=== PATIENT | male | born 1980 | race Caucasian/White ===

== ENCOUNTER 2024-02-05 17:23 | Inpatient (IN) ==
[2024-02-05 18:55] LABS: BILIRUBIN,URINE NEGATIVE (NEGATIVE); BLOOD/HEMOGLOBIN,URINE 1+ (NEGATIVE); GLUCOSE, URINE 2+ (NEGATIVE); KETONES,URINE NEGATIVE (NEGATIVE); LEUKOCYTE ESTERASE ,URINE 1+ (NEGATIVE); NITRITES,URINE NEGATIVE (NEGATIVE); PROTEIN,URINE 1+ (NEGATIVE); UROBILINOGEN,URINE 2+ (NORMAL)
[2024-02-05 19:01] LABS: APPEARANCE,URINE CLEAR (CLEAR); COLOR,URINE YELLOW (YELLOW)
[2024-02-05 19:02] LABS: BACTERIA,URINE NEGATIVE /HPF (NEGATIVE); RBC,URINE 0-2 /HPF (0-3); SQUAMOUS EPITHELIAL CELL,UR RARE /HPF (NEGATIVE)
--- NOTE | 2024-02-05 19:02 | DR.ABDMALE ---
HPI Time seen Time Seen by Provider: 02/05/24 19:02 PCP Primary Care Physician: tonja larry Complaint Chief Complaint:: Patient states around 1400 he was standing around at work he started having gas shooting pain from his kannan shoulders radiating down to his abd area states he went to medical they gave him a antiacid it eased it off a little. Patient states he went home around 1530 tried to lay down the pain started back up again and worse making it tender under kannan rib cages so he went to see his pcp they gave him a gi cocktail which didnt help any. Self Treatment fo Chief Complaint: antiacid, gi cocktail COVID-19 Coronavirus risk:travel/contact w/high risk person: No Has patient experienced Coronavirus symptoms: No Reviewed Nurses Notes Review: Yes Mode of arrival Mode of Arrival: Ambulatory Timing Onset of Chief Complaint: 02/05/24 PMH PMH Past Medical History: Yes Past Medical History: Diabetes and Hypertension Past Surgical History: Yes Past Surgical History Comment: adnoids Family History History of Family Medical Conditions: Yes Family Medical History: Diabetes Mellitus Social History Does patient currently use any type of tobacco product: No Have you used tobacco products in the last 12 months: No Type of Tobacco Use: None Does any household member use tobacco: No Alcohol Use: None Do you use any recreational Drugs:: No Lives With: Family Lives Where: Home Travel Risk Coronavirus risk:travel/contact w/high risk person: No Has patient experienced Coronavirus symptoms: No Infectious screening In the last 2 months have you had wt loss of >10#?: NO Have you had fever, night sweats or hemotysis?: No Have you traveled outside the country in the last 6 months?: No Isolation: Standard PE Vital Signs Vital Signs: Temp Pulse Resp BP Pulse Ox O2 Del Method 02/05/24 19:27 18 02/05/24 17:32 98.1 F 85 18 133/85 98 Room Air ROR Labs Reviewed 02/08/24 04:03 02/08/24 04:03 Laboratory: WBC 5.8 X10^3/uL (3.6-10.0) 02/06/24 04:10 RBC 4.60 X10^6/uL (4.7-6.0) L 02/06/24 04:10 Hgb 13.3 g/dL (13.5-18.0) L 02/06/24 04:10 Hct 38.9 % (42.0-54.0) L 02/06/24 04:10 MCV 84.7 fL (80.0-100.0) 02/06/24 04:10 MCH 28.9 pg (27.0-34.0) 02/06/24 04:10 MCHC 34.1 g/dL (33.0-35.0) 02/06/24 04:10 RDW 15.4 % (11.6-16.5) 02/06/24 04:10 Plt Count 166 X10^3/uL (150.0-450.0) 02/06/24 04:10 MPV 10.3 fL (7.4-11.0) 02/06/24 04:10 Neut % (Auto) 60.3 % (42.0-75.0) 02/06/24 04:10 Lymph % (Auto) 28.8 % (21.0-51.0) 02/06/24 04:10 [place] % (Auto) 8.6 % (0.0-13.0) 02/06/24 04:10 Eos % (Auto) 1.9 % (0.9-2.9) 02/06/24 04:10 Baso % (Auto) 0.4 % (0.2-1.0) 02/06/24 04:10 Neut # (Auto) 3.5 x10^3/uL (2.2-4.8) 02/06/24 04:10 Lymph # (Auto) 1.7 X10^3/uL (1.3-2.9) 02/06/24 04:10 [place] # (Auto) 0.5 x10^3/uL (0.3-0.8) 02/06/24 04:10 Eos # (Auto) 0.1 x10^3/uL (0.0-0.2) 02/06/24 04:10 Baso # (Auto) 0.0 X10^3/uL (0.0-0.1) 02/06/24 04:10 Absolute Nucleated RBC 0.1 /100WBC 02/06/24 04:10 D-Dimer 0.28 ug/ml (0.0-0.57) 02/05/24 18:51 Sodium 140 mmol/L (136-145) 02/06/24 04:10 Corrected Sodium TNP 02/06/24 04:10 Potassium 3.8 mmol/L (3.5-5.1) 02/06/24 04:10 Chloride 103 mmol/L (98-107) 02/06/24 04:10 Carbon Dioxide 33.4 mmol/L (21-32) H 02/06/24 04:10 BUN 6 mg/dL (7-18) L 02/06/24 04:10 Creatinine 0.91 mg/dL (0.70-1.30) 02/06/24 04:10 Est GFR (MDRD) Af Amer > 60 (>60) 02/06/24 04:10 Est GFR (MDRD) Non-Af > 60 (>60) 02/06/24 04:10 Glucose 108 mg/dL (65-99) H 02/06/24 04:10 POC Glucose (mg/dL) 106 mg/dL (65-99) H 02/06/24 05:23 Calcium 8.6 mg/dL (8.5-10.1) 02/06/24 04:10 Corrected Calcium 9.2 mg/dL (8.5-10.1) 02/06/24 04:10 Total Bilirubin 3.70 mg/dL (0.2-1.0) H 02/06/24 04:10 AST 641 Units/L (15-37) H 02/06/24 04:10 ALT 487 Units/L (12-78) H 02/06/24 04:10 Alkaline Phosphatase 165 Units/L (46-116) H 02/06/24 04:10 Creatine Kinase 56 Units/L (39-308) 02/05/24 18:51 Troponin I High Sens < 4.0 ng/L (4.0-60.0) L 02/05/24 18:51 B-Natriuretic Peptide 15.6 pg/mL (0-79) 02/05/24 18:51 Total Protein 6.4 g/dL (6.4-8.2) 02/06/24 04:10 Albumin 3.3 g/dL (3.4-5.0) L 02/06/24 04:10 Globulin 3.1 g/dL (2.5-4.5) 02/06/24 04:10 Albumin/Globulin Ratio 1.1 Ratio (1.1-2.1) 02/06/24 04:10 Amylase 43 Units/L (25-115) 02/06/24 04:10 Lipase 63 Units/L (16-77) 02/06/24 04:10 Specimen Type Clean catch urine 02/05/24 18:40 Urine Color Yellow (YELLOW) 02/05/24 18:40 Urine Appearance Clear (CLEAR) 02/05/24 18:40 Urine pH 6.0 (5.0 - 8.0) 02/05/24 18:40 Ur Specific [place] 1.020 (1.000-1.030) 02/05/24 18:40 Urine Protein 1+ (NEGATIVE) 02/05/24 18:40 Urine Glucose (UA) 2+ (NEGATIVE) 02/05/24 18:40 Urine Ketones Negative (NEGATIVE) 02/05/24 18:40 Urine Blood 1+ (NEGATIVE) 02/05/24 18:40 Urine Nitrite Negative (NEGATIVE) 02/05/24 18:40 Urine Bilirubin Negative (NEGATIVE) 02/05/24 18:40 Urine Urobilinogen 2+ (NORMAL) 02/05/24 18:40 Ur Leukocyte Esterase 1+ (NEGATIVE) 02/05/24 18:40 Urine RBC 0-2 /HPF (0-3) 02/05/24 18:40 Urine WBC 0-2 /HPF (0-5) 02/05/24 18:40 Ur Squamous Epith Cells Rare /HPF (NEGATIVE) 02/05/24 18:40 Urine Bacteria Negative /HPF (NEGATIVE) 02/05/24 18:40 Urine Mucus Few /HPF (NEGATIVE) 02/05/24 18:40 Ur Culture Indicated? No/not indicated 02/05/24 18:40 SARS-CoV-2 (PCR) Negative (NEGATIVE) 02/05/24 23:14 Opioid Opioid Risk Tool Age (Andrés box if 16-45): Yes History of Preadolescent Sexual Abuse: No Total: 1 Total Score Risk Category: Low Risk Copyright: Sebastian MORGAN predicting aberrant behaviors Discharge Plan Diagnosis Discharge Problem: Hyperbilirubinemia Discharge Plan Patient Disposition: 09 ADMITTED INPATIENT Condition: Stable
[2024-02-05 19:05] LABS: BASOPHILS % (AUTO) 0.5 % (0.2-1.0); EOSINOPHILS # (AUTO) 0.1 x10^3/uL (0.0-0.2); HEMATOCRIT 40.3 % (42.0-54.0); HEMOGLOBIN 13.9 g/dL (13.5-18.0); LYMPHOCYTES % (AUTO) 20.3 % (21.0-51.0); MEAN CORPUSCULAR HEMOGLOBIN 29.3 pg (27.0-34.0); MEAN CORPUSCULAR HGB CONC 34.5 g/dL (33.0-35.0); MEAN CORPUSCULAR VOLUME 84.7 fL (80.0-100.0); MEAN PLATELET VOLUME 10.1 fL (7.4-11.0); MONOCYTES # (AUTO) 0.8 x10^3/uL (0.3-0.8); MONOCYTES % (AUTO) 7.6 % (0.0-13.0); NEUTROPHILS % (AUTO) 70.6 % (42.0-75.0); PLATELET COUNT 204 X10^3/uL (150.0-450.0); RED BLOOD COUNT 4.76 X10^6/uL (4.7-6.0); RED CELL DISTRIBUTION WIDTH 14.8 % (11.6-16.5)
--- NOTE | 2024-02-05 19:14 | EKG ---
Test Reason : chest pain Blood Pressure : */* mmHG Vent. Rate : 78 BPM Atrial Rate : 78 BPM P-R Int : 148 ms QRS Dur : 88 ms QT Int : 360 ms P-R-T Axes : 56 17 42 degrees QTc Int : 410 ms Normal sinus rhythm Normal ECG No previous ECGs available Confirmed by Deon Villavicencio MD ([id number]) on 02/06/2024 7:01:22 AM Referred By: Confirmed By: Deon Villavicencio MD
[2024-02-05 19:20] LABS: ALANINE AMINOTRANSFERASE 159 Units/L (12-78); ALKALINE PHOSPHATASE 161 Units/L (46-116); ASPARTATE AMINO TRANSFERASE 197 Units/L (15-37); BLOOD UREA NITROGEN 9 mg/dL (7-18); CALCIUM 9.7 mg/dL (8.5-10.1); CHLORIDE 100 mmol/L (98-107); COR NA(FOR HYPERGLY) 140 mmol/L (136-145); CREATINE KINASE 56 Units/L (39-308); CREATININE 1.09 mg/dL (0.70-1.30); GLUCOSE 176 mg/dL (65-99); POTASSIUM 3.8 mmol/L (3.5-5.1); SODIUM 138 mmol/L (136-145); TOTAL PROTEIN 7.6 g/dL (6.4-8.2); eGFR NON BLACK RACES > 60 (>60)
[2024-02-05] MEDS: NS 1,000 ML IV 1,000 ML IV ONE ×2 (19:26→21:26)
[2024-02-05] MEDS: ZOFRAN INJ 4 MG VIAL IVP ONE (19:26)
[2024-02-05] MEDS: DEMEROL INJ IVP ONE (19:27)
--- NOTE | 2024-02-05 20:55 | CT ---
EXAM: ABDOMEN/PELVIS W/O CON HISTORY: Patient states around 1400 he was standing around at work he started having gas shooting pain from hi s kannan shoulders radiating down to his abd area ; COMPARISON: None. TECHNIQUE: Non-contrasted axial CT images of the abdomen and pelvis were obtained and reformatted into coronal a nd sagittal planes for further evaluation. Radiation dose: 732.05 mGy-cm total DLP FINDINGS: Lung bases are clear. Stomach appears normal. Diffuse fatty infiltration of the liver. Spleen, pancreas and adrenal glands are unremarkable. Gallbladder appears normal. No intra or extrahepatic biliary dilatation. Bilateral nonobstructing nephroliths. Otherwise, unremarkable appearance of the kidneys. No hydronephrosis, hydroureter or ureteral calculus. Unremarkable appearance of the urinary bladder. Colonic diverticulosis without diverticulitis. Otherwise, unremarkable appearance of the small and large bowel. Reproductive structures are unremarkable. No evidence of acute appendicitis. No pneumoperitoneum. No significant fluid collection. No adenopathy. No acute osseous abnormality. Small fat containing umbilical hernia without inflammatory changes. IMPRESSION: 1. No acute intra-abdominal abnormality detected. 2. Nonobstructing bilateral nephroliths. 3. Diffuse fatty infiltration of the liver. 4. Colonic diverticulosis without diverticulitis. THIS IS AN ELECTRONICALLY VERIFIED FINAL REPORT 02/05/2024 8:51 PM - Electronically signed by Shaheed Diaz MD
[2024-02-06 00:41] VITALS: BMI 41.6
--- NOTE | 2024-02-06 03:57 | RAD ---
PROCEDURE: Chest X-ray 1 View.HISTORY: chest pain; .TECHNIQUE: AP portable view.COMPARISON: None .TECHNICAL QUALITY: Satisfactory.FINDINGS:Normal size heart.Mediastinum and hilar regions show no masses or lymphadenopathy.Normal central vascularity.No pulmonary consolidation, masses, pleural fluid, or pneumothorax.No acute bony abnormality.IMPRESSION:No evidence of active cardiopulmonary disease.THIS IS AN ELECTRONICALLY VERIFIED FINAL REPORT02/06/2024 3:54 AM - Electronically signed by Lee Chan MD
[2024-02-06 05:08] LABS: BASOPHILS % (AUTO) 0.4 % (0.2-1.0); EOSINOPHILS # (AUTO) 0.1 x10^3/uL (0.0-0.2); EOSINOPHILS % (AUTO) 1.9 % (0.9-2.9); HEMATOCRIT 38.9 % (42.0-54.0); HEMOGLOBIN 13.3 g/dL (13.5-18.0); LYMPHOCYTES # (AUTO) 1.7 X10^3/uL (1.3-2.9); LYMPHOCYTES % (AUTO) 28.8 % (21.0-51.0); MEAN CORPUSCULAR HEMOGLOBIN 28.9 pg (27.0-34.0); MEAN CORPUSCULAR HGB CONC 34.1 g/dL (33.0-35.0); MEAN CORPUSCULAR VOLUME 84.7 fL (80.0-100.0); MEAN PLATELET VOLUME 10.3 fL (7.4-11.0); MONOCYTES # (AUTO) 0.5 x10^3/uL (0.3-0.8); MONOCYTES % (AUTO) 8.6 % (0.0-13.0); NEUTROPHILS # (AUTO) 3.5 x10^3/uL (2.2-4.8); NEUTROPHILS % (AUTO) 60.3 % (42.0-75.0); PLATELET COUNT 166 X10^3/uL (150.0-450.0); RED CELL DISTRIBUTION WIDTH 15.4 % (11.6-16.5); WHITE BLOOD COUNT 5.8 X10^3/uL (3.6-10.0)
[2024-02-06 05:15] LABS: ALANINE AMINOTRANSFERASE 487 Units/L (12-78); ALBUMIN 3.3 g/dL (3.4-5.0); ALKALINE PHOSPHATASE 165 Units/L (46-116); AMYLASE 43 Units/L (25-115); BLOOD UREA NITROGEN 6 mg/dL (7-18); CALCIUM 8.6 mg/dL (8.5-10.1); CARBON DIOXIDE 33.4 mmol/L (21-32); CHLORIDE 103 mmol/L (98-107); COR CA(FOR HYPOALB) 9.2 mg/dL (8.5-10.1); CREATININE 0.91 mg/dL (0.70-1.30); GLUCOSE 108 mg/dL (65-99); POTASSIUM 3.8 mmol/L (3.5-5.1); SODIUM 140 mmol/L (136-145); TOTAL PROTEIN 6.4 g/dL (6.4-8.2); eGFR NON BLACK RACES > 60 (>60)
[2024-02-06 05:30] LABS: ASPARTATE AMINO TRANSFERASE 641 Units/L (15-37)
[2024-02-06] MEDS ORDERED: CONSULT PHARMACY - POTASSIUM & MAGNESIUM XX SCH (06:00)
--- NOTE | 2024-02-06 09:57 | DR.H&P ---
H&P History & Physical for Day of: H&P Date: 02/06/24 Chief Complaint Chief Complaint: abdominal pain, nausea, vomiting History of Present Illness History of Present Illness: Mr Landaverde is a 44y/o male with a PMH of HTN, DM and Obesity presented with worsening abdominal pain, nausea and vomiting that started yesterday while he was at work. He also had pain radiating to his shoulders. He was seen in the medical office at work, normal EKG and given antacids. He states his symptoms improved slightly but later he started having vomiting so went to his PCP. He states abdominal pain was worsening so he came to the ER. Work up showed elevated LFTs and Alk phos. CTAP showed fatty liver, diverticulosis but no acute changes. Patient was started on anti-emetics, fluids and pain control. Surgery has also been consulted. GB US is pending. He does feel better now, pain has eased a little bit. Denies diarrhea, fever or chills. labs/imaging reviewed: -WBC 5.8 Hgb 13.3 BUN/Cr 6/0.91 AST/ALT 641/487 AP 165 Lipase 63 -CTAP reviewed Plan: start hydration with normal saline, anti-emetics and pain control. Follow surgery recommendations. Gallbladder US pending. NPO for now. Replace electrolytes as per protocol. Home meds on hold for now. Serial abdominal exams. Monitor AM labs/imaging. Past Medical History Past Medical History: Diabetes and Hypertension Family History Family Medical History: Diabetes Mellitus, Cancer and Heart Failure Social History Does patient currently use any type of tobacco product: No Have you used tobacco products in the last 12 months: No Type of Tobacco Use: None Does any household member use tobacco: No Alcohol Use: None Drug Use: None Medications Home Medications: Home Medications Medication Instructions Recorded Confirmed Type buspirone 10 mg tablet 10 mg PO DAILY 02/05/24 02/05/24 History escitalopram oxalate 20 mg tablet 20 mg PO QDAY 02/05/24 02/05/24 History lisinopril 10 mg tablet 10 mg PO QDAY 02/05/24 02/05/24 History meloxicam 15 mg tablet 15 mg PO QDAY 02/05/24 02/05/24 History semaglutide 2 mg/dose (8 mg/3 mL) 2 mg subcut WEEKLY 02/05/24 02/05/24 History subcutaneous pen injector (Ozempic) Allergies Allergies Allergy/AdvReac Type Severity Reaction Status Date / Time No Known Allergies Allergy Verified 02/05/24 17:38 Labs 02/06/24 04:10 02/06/24 04:10 Labs: Laboratory WBC 5.8 X10^3/uL (3.6-10.0) 02/06/24 04:10 RBC 4.60 X10^6/uL (4.7-6.0) L 02/06/24 04:10 Hgb 13.3 g/dL (13.5-18.0) L 02/06/24 04:10 Hct 38.9 % (42.0-54.0) L 02/06/24 04:10 MCV 84.7 fL (80.0-100.0) 02/06/24 04:10 MCH 28.9 pg (27.0-34.0) 02/06/24 04:10 MCHC 34.1 g/dL (33.0-35.0) 02/06/24 04:10 RDW 15.4 % (11.6-16.5) 02/06/24 04:10 Plt Count 166 X10^3/uL (150.0-450.0) 02/06/24 04:10 MPV 10.3 fL (7.4-11.0) 02/06/24 04:10 Neut % (Auto) 60.3 % (42.0-75.0) 02/06/24 04:10 Lymph % (Auto) 28.8 % (21.0-51.0) 02/06/24 04:10 [place] % (Auto) 8.6 % (0.0-13.0) 02/06/24 04:10 Eos % (Auto) 1.9 % (0.9-2.9) 02/06/24 04:10 Baso % (Auto) 0.4 % (0.2-1.0) 02/06/24 04:10 Neut # (Auto) 3.5 x10^3/uL (2.2-4.8) 02/06/24 04:10 Lymph # (Auto) 1.7 X10^3/uL (1.3-2.9) 02/06/24 04:10 [place] # (Auto) 0.5 x10^3/uL (0.3-0.8) 02/06/24 04:10 Eos # (Auto) 0.1 x10^3/uL (0.0-0.2) 02/06/24 04:10 Baso # (Auto) 0.0 X10^3/uL (0.0-0.1) 02/06/24 04:10 Absolute Nucleated RBC 0.1 /100WBC 02/06/24 04:10 D-Dimer 0.28 ug/ml (0.0-0.57) 02/05/24 18:51 Sodium 140 mmol/L (136-145) 02/06/24 04:10 Corrected Sodium TNP 02/06/24 04:10 Potassium 3.8 mmol/L (3.5-5.1) 02/06/24 04:10 Chloride 103 mmol/L (98-107) 02/06/24 04:10 Carbon Dioxide 33.4 mmol/L (21-32) H 02/06/24 04:10 BUN 6 mg/dL (7-18) L 02/06/24 04:10 Creatinine 0.91 mg/dL (0.70-1.30) 02/06/24 04:10 Est GFR (MDRD) Af Amer > 60 (>60) 02/06/24 04:10 Est GFR (MDRD) Non-Af > 60 (>60) 02/06/24 04:10 Glucose 108 mg/dL (65-99) H 02/06/24 04:10 POC Glucose (mg/dL) 106 mg/dL (65-99) H 02/06/24 05:23 Calcium 8.6 mg/dL (8.5-10.1) 02/06/24 04:10 Corrected Calcium 9.2 mg/dL (8.5-10.1) 02/06/24 04:10 Total Bilirubin 3.70 mg/dL (0.2-1.0) H 02/06/24 04:10 AST 641 Units/L (15-37) H 02/06/24 04:10 ALT 487 Units/L (12-78) H 02/06/24 04:10 Alkaline Phosphatase 165 Units/L (46-116) H 02/06/24 04:10 Creatine Kinase 56 Units/L (39-308) 02/05/24 18:51 Troponin I High Sens < 4.0 ng/L (4.0-60.0) L 02/05/24 18:51 B-Natriuretic Peptide 15.6 pg/mL (0-79) 02/05/24 18:51 Total Protein 6.4 g/dL (6.4-8.2) 02/06/24 04:10 Albumin 3.3 g/dL (3.4-5.0) L 02/06/24 04:10 Globulin 3.1 g/dL (2.5-4.5) 02/06/24 04:10 Albumin/Globulin Ratio 1.1 Ratio (1.1-2.1) 02/06/24 04:10 Amylase 43 Units/L (25-115) 02/06/24 04:10 Lipase 63 Units/L (16-77) 02/06/24 04:10 Specimen Type Clean catch urine 02/05/24 18:40 Urine Color Yellow (YELLOW) 02/05/24 18:40 Urine Appearance Clear (CLEAR) 02/05/24 18:40 Urine pH 6.0 (5.0 - 8.0) 02/05/24 18:40 Ur Specific [place] 1.020 (1.000-1.030) 02/05/24 18:40 Urine Protein 1+ (NEGATIVE) 02/05/24 18:40 Urine Glucose (UA) 2+ (NEGATIVE) 02/05/24 18:40 Urine Ketones Negative (NEGATIVE) 02/05/24 18:40 Urine Blood 1+ (NEGATIVE) 02/05/24 18:40 Urine Nitrite Negative (NEGATIVE) 02/05/24 18:40 Urine Bilirubin Negative (NEGATIVE) 02/05/24 18:40 Urine Urobilinogen 2+ (NORMAL) 02/05/24 18:40 Ur Leukocyte Esterase 1+ (NEGATIVE) 02/05/24 18:40 Urine RBC 0-2 /HPF (0-3) 02/05/24 18:40 Urine WBC 0-2 /HPF (0-5) 02/05/24 18:40 Ur Squamous Epith Cells Rare /HPF (NEGATIVE) 02/05/24 18:40 Urine Bacteria Negative /HPF (NEGATIVE) 02/05/24 18:40 Urine Mucus Few /HPF (NEGATIVE) 02/05/24 18:40 Ur Culture Indicated? No/not indicated 02/05/24 18:40 SARS-CoV-2 (PCR) Negative (NEGATIVE) 02/05/24 23:14 Review of Systems Constitutional: No Symptoms Reported Eyes: No Symptoms Reported Respiratory: No Symptoms Reported Cardiovascular: No Symptoms Reported Gastrointestinal: Nausea, Vomiting and Abdominal Pain Genitourinary: No Symptoms Reported Musculoskeletal: Other (shoulder pain ) Skin: No Symptoms Reported Neurological: No Symptoms Reported Physical Exam Vital Signs: Vital Signs Temperature 97.9 F Temperature 97.6 F Pulse Rate [Left Brachial] 79 Pulse Rate [Left Brachial] 74 Pulse Rate [Left Brachial] 72 Pulse Rate [Left Brachial] 74 Respiratory Rate 22 Respiratory Rate 18 Respiratory Rate 14 Respiratory Rate 30 Blood Pressure [Left Arm] 144/85 Blood Pressure [Left Arm] 144/86 Blood Pressure [Left Arm] 142/81 Blood Pressure [Left Arm] 143/76 O2 Sat by Pulse Oximetry 99 O2 Sat by Pulse Oximetry 98 O2 Sat by Pulse Oximetry 99 O2 Sat by Pulse Oximetry 98 Oriented: Normal Eyes: Normal Ear: Normal Nose: Normal Respiratory: Clear Throughout Cardiovascular: Normal Auscultation: Bowel Sounds: Normal Tenderness: Periumbilical and Mild Skin: Normal Musculoskeletal: Normal Psychiatric: Normal Mood Description: Calm Affect: Normal Speech Pattern: Clear and Appropriate Assessment/Plan (1) Transaminitis: Status: Acute (2) Abdominal pain: Qualifiers: Abdominal location: periumbilical Qualified Code(s): R10.33 - Periumbilical pain Status: Acute (3) Nausea and vomiting: Qualifiers: Vomiting type: unspecified Qualified Code(s): R11.2 - Nausea with vomiting, unspecified Status: Acute (4) Fatty liver: Status: Acute (5) Diverticulosis: Status: Acute (6) HTN (hypertension): Qualifiers: Hypertension type: primary hypertension Qualified Code(s): I10 - Esse ntial (primary) hypertension Status: Acute (7) Type 2 diabetes mellitus: Qualifiers: Diabetes mellitus complication status: with hyperglycemia Diabetes [facility] insulin use: without buttermilk drier operator use Qualified Code(s): E11.65 - Type 2 diabetes mellitus with hyperglycemia Status: Acute Review H&P Reviewed: Yes Patient was examined?: Yes
[2024-02-06] MEDS: NS 1,000 ML IV 1,000 ML IV SCH (09:59)
[2024-02-06] MEDS: K-DUR TAB 20 MEQ PO SCH (10:08)
[2024-02-06] MEDS: ZOFRAN INJ 4 MG VIAL IVP PRN (10:13)
--- NOTE | 2024-02-06 12:57 | US ---
EXAMINATION:GALL BLADDERHISTORY:ABD PAIN, ELEVATED BILLIRUBIN AND LFT'S; .COMPARISON STUDY:CT abdomen 02/05/2024TECHNIQUE:Real-time grayscale, color flow, duplex Doppler spectral analysis right upper abdominal quadrantFINDINGS:The liver measures 21.5 cm longitudinal oblique dimension. The liver is diffusely hyperechoic suspicious for fatty infiltration. Liver details are limited. Normal venous waveforms within the main portal vein. The right hepatic vein is patent on the color flow images.The gallbladder is minimally distended containing multiple gallstones. Gallbladder shah measure 2.8 mm diameter. No pericholecystic fluid. Common bile duct measures 5.3 mm diameter. No intrahepatic bile duct dilatation.Pancreas is not well seen due to patient body habitus. No pancreatic duct dilatation.Limited views of the right kidney show no hydronephrosis.IMPRESSION:Hepatomegaly with probable diffuse fatty infiltration of the liver.Cholelithiasis.THIS IS AN ELECTRONICALLY VERIFIED FINAL REPORT02/06/2024 12:54 PM - Electronically signed by Iliana Suazo MD
[2024-02-06] MEDS: VISTARIL PO PRN (20:52)
[2024-02-06] MEDS: LEVAQUIN PREMIX IV 500 MG 500 MG/100 ML BAG IV SCH (21:21)
--- NOTE | 2024-02-06 22:28 | DR.CONSULT ---
CONSULT Consultation for Day of: Date: 02/06/24 Chief Complaint Chief Complaint: abdominal pain, nausea and vomiting Allergies Allergies Allergy/AdvReac Type Severity Reaction Status Date / Time No Known Allergies Allergy Verified 02/05/24 17:38 History of Present Illness History of Present Illness: This is a 44 year old male with a past history of diabetes and hypertension who presented with 1 Day history of abdominal pain ,nausea and vomiting. He was evaluated in the emergency room and noted to have elevated total billion of 3.5 and elevated Alkaline phosphatase aswell as other liver enzymes . CT of the abdomen was unremarkable. He had ultrasound today showing gallstones. Past Medical History Past Medical History: Diabetes and Hypertension Family History Family Medical History: Diabetes Mellitus, Cancer and Heart Failure Social History Does patient currently use any type of tobacco product: No Have you used tobacco products in the last 12 months: No Type of Tobacco Use: None Does any household member use tobacco: No Alcohol Use: None Drug Use: None Medications Home Medications: No Known Allergies Allergy (Verified 02/05/24 17:38) CONTINUE taking the following medications buspirone 10 mg tablet 10 mg PO DAILY 02/05/24 [History] escitalopram oxalate 20 mg tablet 20 mg PO QDAY 02/05/24 [History] lisinopril 10 mg tablet 10 mg PO QDAY 02/05/24 [History] meloxicam 15 mg tablet 15 mg PO QDAY 02/05/24 [History] semaglutide 2 mg/dose (8 mg/3 mL) subcutaneous pen injector (Ozempic) 2 mg subcut WEEKLY 02/05/24 [History] Review of Systems Constitutional: See HPI Eyes: See HPI (No obvious icterus at this time ) ENT: No Symptoms Reported Respiratory: No Symptoms Reported Cardiovascular: No Symptoms Reported Gastrointestinal: See HPI Genitourinary: No Symptoms Reported Musculoskeletal: No Symptoms Reported Skin: No Symptoms Reported Neurological: No Symptoms Reported Physical Exam Vital Signs: Vital Signs Temperature 99.2 F Temperature 97.7 F Pulse Rate [Left Brachial] 75 Pulse Rate [Left Brachial] 77 Respiratory Rate 19 Respiratory Rate 24 Blood Pressure [Left Arm] 147/82 Blood Pressure [Left Arm] 152/87 O2 Sat by Pulse Oximetry 98 O2 Sat by Pulse Oximetry 97 Oriented: Normal, Time and Place Eyes: Normal and Other (no obvious scleral icterus this time ) Ear: Normal Nose: Normal Throat: Normal Respiratory: Clear Throughout Cardiovascular: Normal : Normal Palpation: Other (mildly tender right upper quadrant ) Tenderness: RUQ Skin: Normal Musculoskeletal: Normal Psychiatric: Normal Mood Description: Calm Affect: Normal Speech Pattern: Clear and Appropriate Plan (1) Transaminitis: Status: Acute Plan: With abdominal pain and this ultrasound and the elevated liver function tests must be concerned about cholecsytis and possible common bile duct stones. This patient will require laparoscopic cholecystectomy and cholangiogram . If cholangiogram shows cholecocholithiasis will require ERCP versus laparoscopic common duct exploration He has requested Dr Dyer be his surgeon. (2) Abdominal pain: Status: Acute Qualifiers: Abdominal location: periumbilical Qualified Code(s): R10.33 - Periumbilical pain Plan: see above (3) Nausea and vomiting: Status: Acute Qualifiers: Vomiting type: unspecified Qualified Code(s): R11.2 - Nausea with vomiting, unspecified Plan: see above (4) Fatty liver: Status: Acute Plan: see above (5) Diverticulosis: Status: Acute Plan: follow (6) HTN (hypertension): Status: Acute Qualifiers: Hypertension type: primary hypertension Qualified Code(s): I10 - Essential (primary) hypertension Plan: home meds (7) Type 2 diabetes mellitus: Status: Acute Qualifiers: Diabetes mellitus half-way insulin use: without half-way use Diabetes mellitus complication status: with hyperglycemia Qualified Code(s): E11.65 - Type 2 diabetes mellitus with hyperglycemia Narrative Support Text: sliding scale insulin
[2024-02-07] MEDS: HIBICLENS WASH EXT ONE (04:13)
[2024-02-07 05:26] LABS: BASOPHILS % (AUTO) 0.6 % (0.2-1.0); EOSINOPHILS # (AUTO) 0.2 x10^3/uL (0.0-0.2); EOSINOPHILS % (AUTO) 4.1 % (0.9-2.9); HEMATOCRIT 41.2 % (42.0-54.0); HEMOGLOBIN 13.9 g/dL (13.5-18.0); LYMPHOCYTES # (AUTO) 1.4 X10^3/uL (1.3-2.9); MEAN CORPUSCULAR HEMOGLOBIN 28.6 pg (27.0-34.0); MEAN CORPUSCULAR HGB CONC 33.7 g/dL (33.0-35.0); MEAN PLATELET VOLUME 10.8 fL (7.4-11.0); MONOCYTES # (AUTO) 0.4 x10^3/uL (0.3-0.8); MONOCYTES % (AUTO) 6.5 % (0.0-13.0); NEUTROPHILS # (AUTO) 3.5 x10^3/uL (2.2-4.8); NEUTROPHILS % (AUTO) 62.8 % (42.0-75.0); PLATELET COUNT 179 X10^3/uL (150.0-450.0); RED BLOOD COUNT 4.84 X10^6/uL (4.7-6.0); WHITE BLOOD COUNT 5.6 X10^3/uL (3.6-10.0)
[2024-02-07 05:47] LABS: ALANINE AMINOTRANSFERASE 599 Units/L (12-78); ALBUMIN 3.3 g/dL (3.4-5.0); ALKALINE PHOSPHATASE 249 Units/L (46-116); ASPARTATE AMINO TRANSFERASE 400 Units/L (15-37); BLOOD UREA NITROGEN 2 mg/dL (7-18); CALCIUM 8.7 mg/dL (8.5-10.1); CHLORIDE 102 mmol/L (98-107); COR CA(FOR HYPOALB) 9.3 mg/dL (8.5-10.1); COR NA(FOR HYPERGLY) 138 mmol/L (136-145); CREATININE 0.88 mg/dL (0.70-1.30); GLUCOSE 117 mg/dL (65-99); MAGNESIUM 1.8 mg/dL (2.0-2.9); POTASSIUM 3.8 mmol/L (3.5-5.1); SODIUM 138 mmol/L (136-145); TOTAL PROTEIN 6.8 g/dL (6.4-8.2); eGFR NON BLACK RACES > 60 (>60)
--- NOTE | 2024-02-07 06:30 | EKG ---
Test Reason : mtf Blood Pressure : */* mmHG Vent. Rate : 73 BPM Atrial Rate : 73 BPM P-R Int : 154 ms QRS Dur : 98 ms QT Int : 378 ms P-R-T Axes : 59 13 30 degrees QTc Int : 416 ms Normal sinus rhythm Normal ECG When compared with ECG of 05-FEB-2024 19:02, No significant change was found Confirmed by Deon Villavicencio MD ([id number]) on 02/07/2024 7:34:09 AM Referred By: Confirmed By: Deon Villavicencio MD
--- NOTE | 2024-02-07 06:51 | RAD ---
EXAMINATION: CHEST, 1 VIEW HISTORY: PRE OP-SHAKILA ; DM, HTN SX: ADENOIDS . COMPARISON STUDY: Chest x-ray 02/05/2024 TECHNIQUE: Single portable AP view chest FINDINGS: Lungs are expanded. Mild cardiac silhouette enlargement. Normal pulmonary vascular pattern. CP ang les are sharp. Bones are intact. IMPRESSION: Mild cardiac silhouette enlargement. THIS IS AN ELECTRONICALLY VERIFIED FINAL REPORT 02/07/2024 6:48 AM - Electronically signed by Iliana Suazo MD
[2024-02-07] MEDS ORDERED: CONSULT PHARMACY - POTASSIUM & MAGNESIUM XX SCH (07:00)
[2024-02-07] MEDS ORDERED: K-DUR TAB 20 MEQ PO SCH (09:00)
[2024-02-07] MEDS ORDERED: MAG-OX TAB PO SCH (09:00)
--- NOTE | 2024-02-07 09:40 | PCM.PROG ---
Progress Note Progress Note for Day of Date of Exam: 02/07/24 Subjective Subjective: Patient seen at bedside, no acute events overnight. He is having some mild abdominal pain. GB US did show hepatic steatosis and cholelithiasis. Dr Talbert saw him and ordered MRCP. Patient will also be having lap cholecystectomy today. He is currently NPO. He is getting IV fluids and IV levaquin. Labs/imaging reviewed: -WBC 5.6 Hgb 13.9 K 3.8 AST/ALT 400/599 AP 249 T. Bili 5.20 -GB US reviewed Plan: follow surgery recommendations, MRCP pending. Possible lap cholecystectomy today. Continue IV fluids, antibiotics and pain control. Continue to replace electrolytes as per protocol. Monitor AM labs/imaging. Past Medical Family Social History Allergies: Allergies No Known Allergies Allergy (Verified 02/05/24 17:38) Vital Signs and I&O's Vital Signs: Vital Signs Temperature 98.1 F Temperature 97.9 F Pulse Rate [Left Brachial] 76 Pulse Rate [Left Brachial] 89 Respiratory Rate 16 Respiratory Rate 16 Blood Pressure [Left Arm] 154/74 Blood Pressure [Left Arm] 144/86 O2 Sat by Pulse Oximetry 94 O2 Sat by Pulse Oximetry 94 Intake and Output: Intake & Output 02/04/24 02/05/24 02/06/24 02/07/24 23:59 23:59 23:59 23:59 Intake Total 1999 3222 / 3222 630 / 630 Balance 1999 / 3222 630 / 630 Physical Exam Oriented: Normal, Time and Place Eyes: Normal Ear: Normal Nose: Normal Throat: Normal Cardiovascular: Normal Auscultation: Bowel Sounds: Normal Tenderness: RUQ and Mild Skin: Normal Musculoskeletal: Normal Psychiatric: Normal Mood Description: Calm Affect: Normal Speech Pattern: Clear and Appropriate Laboratory and Diagnostics 02/07/24 04:20 02/07/24 04:20 Labs: Laboratory WBC 5.6 X10^3/uL (3.6-10.0) 02/07/24 04:20 RBC 4.84 X10^6/uL (4.7-6.0) 02/07/24 04:20 Hgb 13.9 g/dL (13.5-18.0) 02/07/24 04:20 Hct 41.2 % (42.0-54.0) L 02/07/24 04:20 MCV 85.0 fL (80.0-100.0) 02/07/24 04:20 MCH 28.6 pg (27.0-34.0) 02/07/24 04:20 MCHC 33.7 g/dL (33.0-35.0) 02/07/24 04:20 RDW 15.0 % (11.6-16.5) 02/07/24 04:20 Plt Count 179 X10^3/uL (150.0-450.0) 02/07/24 04:20 MPV 10.8 fL (7.4-11.0) 02/07/24 04:20 Neut % (Auto) 62.8 % (42.0-75.0) 02/07/24 04:20 Lymph % (Auto) 26.0 % (21.0-51.0) 02/07/24 04:20 [place] % (Auto) 6.5 % (0.0-13.0) 02/07/24 04:20 Eos % (Auto) 4.1 % (0.9-2.9) H 02/07/24 04:20 Baso % (Auto) 0.6 % (0.2-1.0) 02/07/24 04:20 Neut # (Auto) 3.5 x10^3/uL (2.2-4.8) 02/07/24 04:20 Lymph # (Auto) 1.4 X10^3/uL (1.3-2.9) 02/07/24 04:20 [place] # (Auto) 0.4 x10^3/uL (0.3-0.8) 02/07/24 04:20 Eos # (Auto) 0.2 x10^3/uL (0.0-0.2) 02/07/24 04:20 Baso # (Auto) 0.0 X10^3/uL (0.0-0.1) 02/07/24 04:20 Absolute Nucleated RBC 0.1 /100WBC 02/07/24 04:20 D-Dimer 0.28 ug/ml (0.0-0.57) 02/05/24 18:51 Sodium 138 mmol/L (136-145) 02/07/24 04:20 Corrected Sodium 138 mmol/L (136-145) 02/07/24 04:20 Potassium 3.8 mmol/L (3.5-5.1) 02/07/24 04:20 Chloride 102 mmol/L (98-107) 02/07/24 04:20 Carbon Dioxide 30.0 mmol/L (21-32) 02/07/24 04:20 BUN 2 mg/dL (7-18) L 02/07/24 04:20 Creatinine 0.88 mg/dL (0.70-1.30) 02/07/24 04:20 Est GFR (MDRD) Af Amer > 60 (>60) 02/07/24 04:20 Est GFR (MDRD) Non-Af > 60 (>60) 02/07/24 04:20 Glucose 117 mg/dL (65-99) H 02/07/24 04:20 POC Glucose (mg/dL) 135 mg/dL (65-99) H 02/07/24 05:15 Calcium 8.7 mg/dL (8.5-10.1) 02/07/24 04:20 Corrected Calcium 9.3 mg/dL (8.5-10.1) 02/07/24 04:20 Magnesium 1.8 mg/dL (2.0-2.9) L 02/07/24 04:20 Total Bilirubin 5.20 mg/dL (0.2-1.0) H 02/07/24 04:20 AST 400 Units/L (15-37) H 02/07/24 04:20 ALT 599 Units/L (12-78) H 02/07/24 04:20 Alkaline Phosphatase 249 Units/L (46-116) H 02/07/24 04:20 Creatine Kinase 56 Units/L (39-308) 02/05/24 18:51 Troponin I High Sens < 4.0 ng/L (4.0-60.0) L 02/05/24 18:51 B-Natriuretic Peptide 15.6 pg/mL (0-79) 02/05/24 18:51 Total Protein 6.8 g/dL (6.4-8.2) 02/07/24 04:20 Albumin 3.3 g/dL (3.4-5.0) L 02/07/24 04:20 Globulin 3.5 g/dL (2.5-4.5) 02/07/24 04:20 Albumin/Globulin Ratio 0.9 Ratio (1.1-2.1) L 02/07/24 04:20 Amylase 43 Units/L (25-115) 02/06/24 04:10 Lipase 63 Units/L (16-77) 02/06/24 04:10 Specimen Type Clean catch urine 02/05/24 18:40 Urine Color Yellow (YELLOW) 02/05/24 18:40 Urine Appearance Clear (CLEAR) 02/05/24 18:40 Urine pH 6.0 (5.0 - 8.0) 02/05/24 18:40 Ur Specific [place] 1.020 (1.000-1.030) 02/05/24 18:40 Urine Protein 1+ (NEGATIVE) 02/05/24 18:40 Urine Glucose (UA) 2+ (NEGATIVE) 02/05/24 18:40 Urine Ketones Negative (NEGATIVE) 02/05/24 18:40 Urine Blood 1+ (NEGATIVE) 02/05/24 18:40 Urine Nitrite Negative (NEGATIVE) 02/05/24 18:40 Urine Bilirubin Negative (NEGATIVE) 02/05/24 18:40 Urine Urobilinogen 2+ (NORMAL) 02/05/24 18:40 Ur Leukocyte Esterase 1+ (NEGATIVE) 02/05/24 18:40 Urine RBC 0-2 /HPF (0-3) 02/05/24 18:40 Urine WBC 0-2 /HPF (0-5) 02/05/24 18:40 Ur Squamous Epith Cells Rare /HPF (NEGATIVE) 02/05/24 18:40 Urine Bacteria Negative /HPF (NEGATIVE) 02/05/24 18:40 Urine Mucus Few /HPF (NEGATIVE) 02/05/24 18:40 Ur Culture Indicated? No/not indicated 02/05/24 18:40 SARS-CoV-2 (PCR) Negative (NEGATIVE) 02/05/24 23:14 Plan (1) Cholelithiases: Status: Acute Qualifiers: Cholelithiasis location: other site (2) Transaminitis: Status: Acute (3) Abdominal pain: Status: Acute Qualifiers: Abdominal location: periumbilical Qualified Code(s): R10.33 - Periumbilical pain (4) Nausea and vomiting: Status: Acute Qualifiers: Vomiting type: unspecified Qualified Code(s): R11.2 - Nausea with vomiting, unspecified (5) Fatty liver: Status: Acute (6) Diverticulosis: Status: Acute (7) HTN (hypertension): Status: Acute Qualifiers: Hypertension type: primary hypertension Qualified Code(s): I10 - Essential (primary) hypertension (8) Type 2 diabetes mellitus: Status: Acute Qualifiers: Diabetes mellitus complication status: with hyperglycemia 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
--- NOTE | 2024-02-07 14:42 | MRI ---
EXAM:MRCPHISTORY:LIVER ENZYMES INCREASING ;COMPARISON:Gallbladder ultrasound 02/06/2024TECHNIQUE:Multiplanar multisequence MRI of the abdomen was obtained without contrast. MRCP protocol was used.FINDINGS:Very minimal decreased signal on in/out phase imaging suggests minimal hepatic steatosis. Otherwise liver is normal in size. No liver mass or intrahepatic biliary dilatation.Gallbladder well distended. Small filling defects are consistent with cholelithiasis. No surrounding edema or obvious edema within the gallbladder wall.There is good visualization of the extrahepatic biliary tree. There is no dilatation. No filling defect to suggest choledocholithiasis.Pancreas has a normal size and signal intensity. Pancreatic duct is not dilated.The adrenal glands are normal. The kidneys have normal size and shape. There is no hydronephrosis or perirenal edema.The bowel is not dilated. There is no wall thickening in the bowel or edema around the bowel.IMPRESSION:1. No acute findings2. No biliary obstruction or choledocholithiasis3. CholelithiasisTHIS IS AN ELECTRONICALLY VERIFIED FINAL REPORT02/07/2024 2:38 PM - Electronically signed by Taj Dale MD
[2024-02-07] MEDS: NS 1,000 ML IV 1,000 ML ONE (15:27)
[2024-02-07] MEDS: ANCEF VIAL 1 GRAM ONE (15:34)
[2024-02-07] MEDS: NS 100 ML IV 100 ML ONE (15:34)
[2024-02-07] MEDS: OFIRMEV IV 1000 MG VIAL 1,000 MG/100 ML VIAL IV ONE (15:45)
[2024-02-07] MEDS: VERSED ONE (15:45)
[2024-02-07] MEDS: DECADRON INJ ONE (15:45)
[2024-02-07] MEDS ORDERED: KETAMINE HCL ONE (15:45)
[2024-02-07] MEDS: ZOFRAN INJ 4 MG VIAL ONE ×2 (15:45→17:27)
[2024-02-07] MEDS: ROBINUL ONE (15:45)
[2024-02-07] MEDS: FENTANYL VIAL INJ 100 mcg ONE (15:45)
[2024-02-07] MEDS: DIPRIVAN VIAL 20 ML ONE (15:45)
[2024-02-07] MEDS: PEPCID 20 MG VIAL ONE (15:45)
[2024-02-07] MEDS: ZEMURON 100 MG VIAL ONE (15:45)
[2024-02-07] MEDS ORDERED: ULTANE GAS IN ONE (15:45)
[2024-02-07] MEDS: BRIDION ONE (15:45)
[2024-02-07] MEDS: XYLOCAINE 2 % (PLAIN) ONE (15:45)
[2024-02-07] MEDS ORDERED: ZOFRAN INJ 4 MG VIAL IVP PRN (16:29)
[2024-02-07] MEDS ORDERED: BENADRYL INJ 50 MG VIAL IVP PRN (16:29)
[2024-02-07] MEDS: REGLAN INJ 10 MG VIAL ONE (16:31)
[2024-02-07] MEDS: TORADOL 30 MG VIAL ONE (16:36)
[2024-02-07] MEDS: BACTROBAN TOPICAL OINT ONE (16:55)
[2024-02-07] MEDS: DILAUDID INJ ONE (17:27)
[2024-02-07] MEDS: DILAUDID INJ IVP PRN ×2 (17:32→21:49)
[2024-02-07] MEDS: TORADOL 30 MG VIAL IVP PRN (19:15)
[2024-02-08 04:19] VITALS: O2SAT 99
[2024-02-08 04:57] LABS: BASOPHILS % (AUTO) 0.2 % (0.2-1.0); EOSINOPHILS % (AUTO) 0.1 % (0.9-2.9); HEMATOCRIT 39.1 % (42.0-54.0); HEMOGLOBIN 13.2 g/dL (13.5-18.0); LYMPHOCYTES # (AUTO) 0.9 X10^3/uL (1.3-2.9); MEAN CORPUSCULAR HEMOGLOBIN 28.8 pg (27.0-34.0); MEAN CORPUSCULAR HGB CONC 33.8 g/dL (33.0-35.0); MEAN CORPUSCULAR VOLUME 85.2 fL (80.0-100.0); MEAN PLATELET VOLUME 10.6 fL (7.4-11.0); MONOCYTES # (AUTO) 0.5 x10^3/uL (0.3-0.8); MONOCYTES % (AUTO) 5.8 % (0.0-13.0); NEUTROPHILS % (AUTO) 82.9 % (42.0-75.0); PLATELET COUNT 184 X10^3/uL (150.0-450.0); RED BLOOD COUNT 4.59 X10^6/uL (4.7-6.0); RED CELL DISTRIBUTION WIDTH 15.1 % (11.6-16.5); WHITE BLOOD COUNT 8.5 X10^3/uL (3.6-10.0)
[2024-02-08 05:01] LABS: ALANINE AMINOTRANSFERASE 435 Units/L (12-78); ALBUMIN 3.3 g/dL (3.4-5.0); ALKALINE PHOSPHATASE 228 Units/L (46-116); ASPARTATE AMINO TRANSFERASE 168 Units/L (15-37); BLOOD UREA NITROGEN 4 mg/dL (7-18); CALCIUM 8.6 mg/dL (8.5-10.1); CARBON DIOXIDE 30.9 mmol/L (21-32); CHLORIDE 101 mmol/L (98-107); COR CA(FOR HYPOALB) 9.2 mg/dL (8.5-10.1); COR NA(FOR HYPERGLY) 138 mmol/L (136-145); CREATININE 0.96 mg/dL (0.70-1.30); GLUCOSE 184 mg/dL (65-99); MAGNESIUM 1.8 mg/dL (2.0-2.9); SODIUM 136 mmol/L (136-145); TOTAL PROTEIN 6.9 g/dL (6.4-8.2); eGFR NON BLACK RACES > 60 (>60)
[2024-02-08] MEDS ORDERED: CONSULT PHARMACY - POTASSIUM & MAGNESIUM XX SCH (07:00)
[2024-02-08] MEDS: NS 1,000 ML IV 1,000 ML with MAGNESIUM SULFATE 50% INJ VIAL 1 G IV SCH (08:04)
[2024-02-08] MEDS: MAGNESIUM SULFATE 50% INJ VIAL ONE (08:08)
[2024-02-08 08:10] VITALS: BP 138/73; PULSE 86; TEMP 97.6
--- NOTE | 2024-02-08 08:47 | DR.PROGNOT ---
HOSPITAL PROGRESS NOTE Progress Note for Day of: Progress Note Date: 02/08/24 Chief Complaint Chief Complaint: Patient's status post diagnostic laparoscopy and laparoscopic cholecystectomy, repair of umbilical hernia. Patient is doing better today with less abdominal pain. White count is 8.5 with 82.9 segs. Serum bilirubin is down to 2.6, alkaline phosphatase of 228, the rest of liver enzymes are down. Patient is afebrile. Abdomen is soft with good bowel sounds. Will advance diet and could be discharged today to be followed in the office in 10 days. Will repeat lab work in 2 days. Past Medical Family Social History Allergies: Allergies No Known Allergies Allergy (Verified 02/05/24 17:38) Vital Signs Vital Signs: Vital Signs Temperature 97.6 F Pulse Rate [Left Brachial] 86 Pulse Rate [Left Brachial] 69 Pulse Rate [Left Brachial] 62 Pulse Rate [Left Brachial] 75 Respiratory Rate 21 Respiratory Rate 21 Respiratory Rate 21 Respiratory Rate 16 Respiratory Rate 14 Respiratory Rate 15 Blood Pressure [Left Arm] 138/73 Blood Pressure [Left Arm] 126/75 Blood Pressure [Left Arm] 127/88 Blood Pressure [Left Arm] 118/70 O2 Sat by Pulse Oximetry 99 O2 Sat by Pulse Oximetry 99 O2 Sat by Pulse Oximetry 99 O2 Sat by Pulse Oximetry 95 Physical Exam Oriented: Normal, Time and Place Eyes: Normal Ear: Normal Nose: Normal Throat: Normal Cardiovascular: Normal : Normal GI:Auscultation: Normal GI:Palpation: Other (mildly tender right upper quadrant ) GI: Tenderness: RUQ and Mild Skin: Normal Musculoskeletal: Normal Psychiatric: Normal Mood Description: Calm Affect: Normal Speech Pattern: Clear and Appropriate Laboratory and Diagnostics 02/08/24 04:03 02/08/24 04:03 Labs: Laboratory WBC 8.5 X10^3/uL (3.6-10.0) 02/08/24 04:03 RBC 4.59 X10^6/uL (4.7-6.0) L 02/08/24 04:03 Hgb 13.2 g/dL (13.5-18.0) L 02/08/24 04:03 Hct 39.1 % (42.0-54.0) L 02/08/24 04:03 MCV 85.2 fL (80.0-100.0) 02/08/24 04:03 MCH 28.8 pg (27.0-34.0) 02/08/24 04:03 MCHC 33.8 g/dL (33.0-35.0) 02/08/24 04:03 RDW 15.1 % (11.6-16.5) 02/08/24 04:03 Plt Count 184 X10^3/uL (150.0-450.0) 02/08/24 04:03 MPV 10.6 fL (7.4-11.0) 02/08/24 04:03 Neut % (Auto) 82.9 % (42.0-75.0) H 02/08/24 04:03 Lymph % (Auto) 11.0 % (21.0-51.0) L 02/08/24 04:03 [place] % (Auto) 5.8 % (0.0-13.0) 02/08/24 04:03 Eos % (Auto) 0.1 % (0.9-2.9) L 02/08/24 04:03 Baso % (Auto) 0.2 % (0.2-1.0) 02/08/24 04:03 Neut # (Auto) 7.0 x10^3/uL (2.2-4.8) H 02/08/24 04:03 Lymph # (Auto) 0.9 X10^3/uL (1.3-2.9) L 02/08/24 04:03 [place] # (Auto) 0.5 x10^3/uL (0.3-0.8) 02/08/24 04:03 Eos # (Auto) 0.0 x10^3/uL (0.0-0.2) 02/08/24 04:03 Baso # (Auto) 0.0 X10^3/uL (0.0-0.1) 02/08/24 04:03 Absolute Nucleated RBC 0.0 /100WBC 02/08/24 04:03 D-Dimer 0.28 ug/ml (0.0-0.57) 02/05/24 18:51 Sodium 136 mmol/L (136-145) 02/08/24 04:03 Corrected Sodium 138 mmol/L (136-145) 02/08/24 04:03 Potassium 5.0 mmol/L (3.5-5.1) 02/08/24 04:03 Chloride 101 mmol/L (98-107) 02/08/24 04:03 Carbon Dioxide 30.9 mmol/L (21-32) 02/08/24 04:03 BUN 4 mg/dL (7-18) L 02/08/24 04:03 Creatinine 0.96 mg/dL (0.70-1.30) 02/08/24 04:03 Est GFR (MDRD) Af Amer > 60 (>60) 02/08/24 04:03 Est GFR (MDRD) Non-Af > 60 (>60) 02/08/24 04:03 Glucose 184 mg/dL (65-99) H 02/08/24 04:03 POC Glucose (mg/dL) 175 mg/dL (65-99) H 02/08/24 05:19 Calcium 8.6 mg/dL (8.5-10.1) 02/08/24 04:03 Corrected Calcium 9.2 mg/dL (8.5-10.1) 02/08/24 04:03 Magnesium 1.8 mg/dL (2.0-2.9) L 02/08/24 04:03 Total Bilirubin 2.60 mg/dL (0.2-1.0) H 02/08/24 04:03 AST 168 Units/L (15-37) H 02/08/24 04:03 ALT 435 Units/L (12-78) H 02/08/24 04:03 Alkaline Phosphatase 228 Units/L (46-116) H 02/08/24 04:03 Creatine Kinase 56 Units/L (39-308) 02/05/24 18:51 Troponin I High Sens < 4.0 ng/L (4.0-60.0) L 02/05/24 18:51 B-Natriuretic Peptide 15.6 pg/mL (0-79) 02/05/24 18:51 Total Protein 6.9 g/dL (6.4-8.2) 02/08/24 04:03 Albumin 3.3 g/dL (3.4-5.0) L 02/08/24 04:03 Globulin 3.6 g/dL (2.5-4.5) 02/08/24 04:03 Albumin/Globulin Ratio 0.9 Ratio (1.1-2.1) L 02/08/24 04:03 Amylase 43 Units/L (25-115) 02/06/24 04:10 Lipase 63 Units/L (16-77) 02/06/24 04:10 Specimen Type Clean catch urine 02/05/24 18:40 Urine Color Yellow (YELLOW) 02/05/24 18:40 Urine Appearance Clear (CLEAR) 02/05/24 18:40 Urine pH 6.0 (5.0 - 8.0) 02/05/24 18:40 Ur Specific [place] 1.020 (1.000-1.030) 02/05/24 18:40 Urine Protein 1+ (NEGATIVE) 02/05/24 18:40 Urine Glucose (UA) 2+ (NEGATIVE) 02/05/24 18:40 Urine Ketones Negative (NEGATIVE) 02/05/24 18:40 Urine Blood 1+ (NEGATIVE) 02/05/24 18:40 Urine Nitrite Negative (NEGATIVE) 02/05/24 18:40 Urine Bilirubin Negative (NEGATIVE) 02/05/24 18:40 Urine Urobilinogen 2+ (NORMAL) 02/05/24 18:40 Ur Leukocyte Esterase 1+ (NEGATIVE) 02/05/24 18:40 Urine RBC 0-2 /HPF (0-3) 02/05/24 18:40 Urine WBC 0-2 /HPF (0-5) 02/05/24 18:40 Ur Squamous Epith Cells Rare /HPF (NEGATIVE) 02/05/24 18:40 Urine Bacteria Negative /HPF (NEGATIVE) 02/05/24 18:40 Urine Mucus Few /HPF (NEGATIVE) 02/05/24 18:40 Ur Culture Indicated? No/not indicated 02/05/24 18:40 SARS-CoV-2 (PCR) Negative (NEGATIVE) 02/05/24 23:14 Assessment and Plan 1: Postop laparoscopic cholecystectomy and repair of umbilical hernia. Elevated liver enzymes which could indicate passage of the sludge and small stones through the common bile duct. To advance diet, May be discharged and will follow in 10 days. Light activities, low-fat diet, incentive spirometer. Follow-up in 10 days.. Problem Patient Problems: Patient Problems Hyperbilirubinemia (Acute) E80.6
[2024-02-08 10:56] VITALS: RESP 18
--- NOTE | 2024-02-14 16:36 | W.DIS.FURT ---
Summary of Discharge Discharge Summary of Date Date of Exam: 02/08/24 Admission Date Date of Admission: 02/05/24 Admission Diagnosis Patient Problems (Updated 02/07/24 @ 09:39 by Nicole Vaughn) Hyperbilirubinemia (Acute) E80.6 Hospital Course: Pt is status post laparoscopic cholecystectomy and repair of umbilical hernia. He is doing well since procedure. Diet has been advanced. He was discharged in stable condition. Instructed light activities, low-fat diet, incentive spirometer. Follow-up in general surgery in 10 days and pcp in 1 week. Vital Signs: Vital Signs (72 hours) 02/05/24 17:32 02/05/24 19:27 02/05/24 23:45 Temperature 98.1 F Pulse Rate 85 Pulse Rate [Left Brachial] 71 Respiratory Rate 18 18 20 Blood Pressure 133/85 Blood Pressure [Left Arm] 138/79 O2 Sat by Pulse Oximetry 98 97 Oxygen Delivery Method Room Air Room Air Oxygen Flow Rate FIO2% 02/05/24 23:52 02/06/24 00:00 02/06/24 01:00 Temperature Pulse Rate Pulse Rate [Left Brachial] 102 H 79 Respiratory Rate 20 16 31 H Blood Pressure Blood Pressure [Left Arm] 140/90 150/81 O2 Sat by Pulse Oximetry 100 97 Oxygen Delivery Method Room Air Nasal Cannula Oxygen Flow Rate FIO2% 02/06/24 01:14 02/06/24 02:00 02/05/24 23:57 Temperature Pulse Rate Pulse Rate [Left Brachial] 74 Respiratory Rate 30 H Blood Pressure Blood Pressure [Left Arm] 143/76 O2 Sat by Pulse Oximetry 98 Oxygen Delivery Method Nasal Cannula Nasal Cannula Room Air Oxygen Flow Rate 2 FIO2% 28 02/06/24 03:00 02/06/24 04:00 02/06/24 07:00 Temperature 97.6 F Pulse Rate Pulse Rate [Left Brachial] 72 74 Respiratory Rate 14 18 Blood Pressure Blood Pressure [Left Arm] 142/81 144/86 O2 Sat by Pulse Oximetry 99 98 Oxygen Delivery Method Nasal Cannula Room Air Room Air Oxygen Flow Rate FIO2% 28 02/06/24 08:00 02/06/24 08:00 02/06/24 12:00 Temperature 97.9 F 97.9 F Pulse Rate Pulse Rate [Left Brachial] 79 81 Respiratory Rate 22 23 Blood Pressure Blood Pressure [Left Arm] 144/85 145/90 O2 Sat by Pulse Oximetry 99 96 Oxygen Delivery Method Room Air Nasal Cannula Nasal Cannula Oxygen Flow Rate 2 FIO2% 28 02/06/24 16:00 02/06/24 20:00 02/06/24 19:00 Temperature 97.7 F 99.2 F Pulse Rate Pulse Rate [Left Brachial] 77 75 Respiratory Rate 24 19 Blood Pressure Blood Pressure [Left Arm] 152/87 147/82 O2 Sat by Pulse Oximetry 97 98 Oxygen Delivery Method Nasal Cannula Nasal Cannula Nasal Cannula Oxygen Flow Rate 2 2 FIO2% 02/06/24 21:58 02/07/24 00:00 02/07/24 04:00 Temperature 98.9 F 97.9 F Pulse Rate Pulse Rate [Left Brachial] 84 89 Respiratory Rate 18 16 Blood Pressure Blood Pressure [Left Arm] 132/67 144/86 O2 Sat by Pulse Oximetry 97 94 L Oxygen Delivery Method Nasal Cannula Nasal Cannula Nasal Cannula Oxygen Flow Rate 2 2 2 FIO2% 28 28 02/07/24 06:55 02/07/24 08:00 02/07/24 12:00 Temperature 98.1 F 98.4 F Pulse Rate Pulse Rate [Left Brachial] 76 78 Respiratory Rate 16 19 Blood Pressure Blood Pressure [Left Arm] 154/74 127/68 O2 Sat by Pulse Oximetry 94 L 98 Oxygen Delivery Method Nasal Cannula Nasal Cannula Nasal Cannula Oxygen Flow Rate 2 2 2 FIO2% 28 02/07/24 15:29 02/07/24 15:31 02/07/24 17:13 Temperature 98 F 97.5 F L Pulse Rate 80 98 H Pulse Rate [Left Brachial] Respiratory Rate 18 18 16 Blood Pressure 145/89 156/83 Blood Pressure [Left Arm] O2 Sat by Pulse Oximetry 99 98 Oxygen Delivery Method Room Air Aerosol Face Tent Oxygen Flow Rate FIO2% 02/07/24 17:18 02/07/24 17:23 02/07/24 16:36 Temperature Pulse Rate 93 H 95 H Pulse Rate [Left Brachial] Respiratory Rate 16 16 16 Blood Pressure 155/82 157/84 Blood Pressure [Left Arm] O2 Sat by Pulse Oximetry 98 98 Oxygen Delivery Method Aerosol Face Tent Aerosol Face Tent Oxygen Flow Rate FIO2% 02/07/24 17:28 02/07/24 17:27 02/07/24 17:32 Temperature Pulse Rate 98 H Pulse Rate [Left Brachial] Respiratory Rate 16 16 16 Blood Pressure 156/83 Blood Pressure [Left Arm] O2 Sat by Pulse Oximetry 99 Oxygen Delivery Method Nasal Cannula Oxygen Flow Rate FIO2% 02/07/24 17:33 02/07/24 17:37 02/07/24 17:38 Temperature Pulse Rate 100 H 88 Pulse Rate [Left Brachial] Respiratory Rate 16 16 16 Blood Pressure 153/81 150/76 Blood Pressure [Left Arm] O2 Sat by Pulse Oximetry 99 99 Oxygen Delivery Method Nasal Cannula Nasal Cannula Oxygen Flow Rate FIO2% 02/07/24 17:42 02/07/24 17:43 02/07/24 17:55 Temperature 98.7 F Pulse Rate 91 H Pulse Rate [Left Brachial] 99 H Respiratory Rate 16 16 21 Blood Pressure 151/81 Blood Pressure [Left Arm] 147/80 O2 Sat by Pulse Oximetry 95 97 Oxygen Delivery Method Nasal Cannula Oxygen Flow Rate FIO2% 02/07/24 18:24 02/07/24 18:33 02/07/24 19:15 Temperature 98.7 F 98.7 F Pulse Rate Pulse Rate [Left Brachial] 96 H 90 Respiratory Rate 15 19 14 Blood Pressure Blood Pressure [Left Arm] 139/72 168/86 O2 Sat by Pulse Oximetry 98 96 Oxygen Delivery Method Oxygen Flow Rate FIO2% 02/07/24 19:00 02/07/24 20:15 02/07/24 21:49 Temperature Pulse Rate Pulse Rate [Left Brachial] Respiratory Rate 14 Blood Pressure Blood Pressure [Left Arm] O2 Sat by Pulse Oximetry Oxygen Delivery Method Room Air Nasal Cannula Oxygen Flow Rate 2 FIO2% 02/07/24 20:00 02/07/24 18:40 02/07/24 18:55 Temperature 98.7 F 99.3 F Pulse Rate Pulse Rate [Left Brachial] 98 H 97 H 105 H Respiratory Rate 18 23 105 H Blood Pressure Blood Pressure [Left Arm] 130/70 168/82 175/89 O2 Sat by Pulse Oximetry 95 97 93 L Oxygen Delivery Method Room Air Oxygen Flow Rate FIO2% 02/07/24 19:55 02/07/24 20:55 02/07/24 21:55 Temperature 98.7 F 97.8 F 97.8 F Pulse Rate Pulse Rate [Left Brachial] 98 H 100 H 97 H Respiratory Rate 20 22 23 Blood Pressure Blood Pressure [Left Arm] 150/76 167/82 153/84 O2 Sat by Pulse Oximetry 94 L 92 L 92 L Oxygen Delivery Method Oxygen Flow Rate FIO2% 02/07/24 19:45 02/07/24 22:19 02/07/24 22:55 Temperature 98.5 F Pulse Rate Pulse Rate [Left Brachial] 95 H Respiratory Rate 18 20 20 Blood Pressure Blood Pressure [Left Arm] 138/82 O2 Sat by Pulse Oximetry 97 Oxygen Delivery Method Oxygen Flow Rate FIO2% 02/08/24 00:00 02/08/24 01:15 02/08/24 04:00 Temperature Pulse Rate Pulse Rate [Left Brachial] 93 H 75 62 Respiratory Rate 15 15 14 Blood Pressure Blood Pressure [Left Arm] 121/77 118/70 127/88 O2 Sat by Pulse Oximetry 95 95 99 Oxygen Delivery Method Nasal Cannula Nasal Cannula Nasal Cannula Oxygen Flow Rate 2 2 2 FIO2% 02/08/24 04:25 02/08/24 05:00 02/08/24 04:55 Temperature Pulse Rate Pulse Rate [Left Brachial] 69 Respiratory Rate 16 21 21 Blood Pressure Blood Pressure [Left Arm] 126/75 O2 Sat by Pulse Oximetry 99 Oxygen Delivery Method Nasal Cannula Oxygen Flow Rate 2 FIO2% 02/08/24 07:00 02/08/24 09:28 02/08/24 08:00 Temperature 97.6 F Pulse Rate Pulse Rate [Left Brachial] 86 Respiratory Rate 21 21 Blood Pressure Blood Pressure [Left Arm] 138/73 O2 Sat by Pulse Oximetry 99 Oxygen Delivery Method Room Air Room Air Oxygen Flow Rate FIO2% Labs: Laboratory Last Values WBC 8.5 X10^3/uL (3.6-10.0) 02/08/24 04:03 RBC 4.59 X10^6/uL (4.7-6.0) L 02/08/24 04:03 Hgb 13.2 g/dL (13.5-18.0) L 02/08/24 04:03 Hct 39.1 % (42.0-54.0) L 02/08/24 04:03 MCV 85.2 fL (80.0-100.0) 02/08/24 04:03 MCH 28.8 pg (27.0-34.0) 02/08/24 04:03 MCHC 33.8 g/dL (33.0-35.0) 02/08/24 04:03 RDW 15.1 % (11.6-16.5) 02/08/24 04:03 Plt Count 184 X10^3/uL (150.0-450.0) 02/08/24 04:03 MPV 10.6 fL (7.4-11.0) 02/08/24 04:03 Neut % (Auto) 82.9 % (42.0-75.0) H 02/08/24 04:03 Lymph % (Auto) 11.0 % (21.0-51.0) L 02/08/24 04:03 [place] % (Auto) 5.8 % (0.0-13.0) 02/08/24 04:03 Eos % (Auto) 0.1 % (0.9-2.9) L 02/08/24 04:03 Baso % (Auto) 0.2 % (0.2-1.0) 02/08/24 04:03 Neut # (Auto) 7.0 x10^3/uL (2.2-4.8) H 02/08/24 04:03 Lymph # (Auto) 0.9 X10^3/uL (1.3-2.9) L 02/08/24 04:03 [place] # (Auto) 0.5 x10^3/uL (0.3-0.8) 02/08/24 04:03 Eos # (Auto) 0.0 x10^3/uL (0.0-0.2) 02/08/24 04:03 Baso # (Auto) 0.0 X10^3/uL (0.0-0.1) 02/08/24 04:03 Absolute Nucleated RBC 0.0 /100WBC 02/08/24 04:03 D-Dimer 0.28 ug/ml (0.0-0.57) 02/05/24 18:51 Sodium 136 mmol/L (136-145) 02/08/24 04:03 Corrected Sodium 138 mmol/L (136-145) 02/08/24 04:03 Potassium 5.0 mmol/L (3.5-5.1) 02/08/24 04:03 Chloride 101 mmol/L (98-107) 02/08/24 04:03 Carbon Dioxide 30.9 mmol/L (21-32) 02/08/24 04:03 BUN 4 mg/dL (7-18) L 02/08/24 04:03 Creatinine 0.96 mg/dL (0.70-1.30) 02/08/24 04:03 Est GFR (MDRD) Af Amer > 60 (>60) 02/08/24 04:03 Est GFR (MDRD) Non-Af > 60 (>60) 02/08/24 04:03 Glucose 184 mg/dL (65-99) H 02/08/24 04:03 POC Glucose (mg/dL) 175 mg/dL (65-99) H 02/08/24 05:19 Calcium 8.6 mg/dL (8.5-10.1) 02/08/24 04:03 Corrected Calcium 9.2 mg/dL (8.5-10.1) 02/08/24 04:03 Magnesium 1.8 mg/dL (2.0-2.9) L 02/08/24 04:03 Total Bilirubin 2.60 mg/dL (0.2-1.0) H 02/08/24 04:03 AST 168 Units/L (15-37) H 02/08/24 04:03 ALT 435 Units/L (12-78) H 02/08/24 04:03 Alkaline Phosphatase 228 Units/L (46-116) H 02/08/24 04:03 Creatine Kinase 56 Units/L (39-308) 02/05/24 18:51 Troponin I High Sens < 4.0 ng/L (4.0-60.0) L 02/05/24 18:51 B-Natriuretic Peptide 15.6 pg/mL (0-79) 02/05/24 18:51 Total Protein 6.9 g/dL (6.4-8.2) 02/08/24 04:03 Albumin 3.3 g/dL (3.4-5.0) L 02/08/24 04:03 Globulin 3.6 g/dL (2.5-4.5) 02/08/24 04:03 Albumin/Globulin Ratio 0.9 Ratio (1.1-2.1) L 02/08/24 04:03 Amylase 43 Units/L (25-115) 02/06/24 04:10 Lipase 63 Units/L (16-77) 02/06/24 04:10 Specimen Type Clean catch urine 02/05/24 18:40 Urine Color Yellow (YELLOW) 02/05/24 18:40 Urine Appearance Clear (CLEAR) 02/05/24 18:40 Urine pH 6.0 (5.0 - 8.0) 02/05/24 18:40 Ur Specific [place] 1.020 (1.000-1.030) 02/05/24 18:40 Urine Protein 1+ (NEGATIVE) 02/05/24 18:40 Urine Glucose (UA) 2+ (NEGATIVE) 02/05/24 18:40 Urine Ketones Negative (NEGATIVE) 02/05/24 18:40 Urine Blood 1+ (NEGATIVE) 02/05/24 18:40 Urine Nitrite Negative (NEGATIVE) 02/05/24 18:40 Urine Bilirubin Negative (NEGATIVE) 02/05/24 18:40 Urine Urobilinogen 2+ (NORMAL) 02/05/24 18:40 Ur Leukocyte Esterase 1+ (NEGATIVE) 02/05/24 18:40 Urine RBC 0-2 /HPF (0-3) 02/05/24 18:40 Urine WBC 0-2 /HPF (0-5) 02/05/24 18:40 Ur Squamous Epith Cells Rare /HPF (NEGATIVE) 02/05/24 18:40 Urine Bacteria Negative /HPF (NEGATIVE) 02/05/24 18:40 Urine Mucus Few /HPF (NEGATIVE) 02/05/24 18:40 Ur Culture Indicated? No/not indicated 02/05/24 18:40 SARS-CoV-2 (PCR) Negative (NEGATIVE) 02/05/24 23:14 Reason For Visit: HYPERBILIRUBINEMIA Discharge Date Discharge Date: 02/08/24 Discharge Diagnosis All Active Problems (Updated 02/07/24 @ 09:39 by Nicole Vaughn) Cholelithiases (Acute) Type 2 diabetes mellitus (Acute) HTN (hypertension) (Acute) Diverticulosis (Acute) Fatty liver (Acute) Nausea and vomiting (Acute) Abdominal pain (Acute) Transaminitis (Acute) Dental caries (Acute) Sinusitis (Acute) Pain, dental (Acute) Pyorrhea (Acute) Hyperbilirubinemia (Acute) Plan of Treatment: Continue with present treatment and follow up plan. Pt is to keep follow up appointment as instructed and take medications as ordered. Discharge Medications Discharge Medications: No Known Allergies Allergy (Verified 02/05/24 17:38) CONTINUE taking the following medications buspirone 10 mg tablet 10 mg PO DAILY 02/05/24 [History] escitalopram oxalate 20 mg tablet 20 mg PO QDAY 02/05/24 [History] lisinopril 10 mg tablet 10 mg PO QDAY 02/05/24 [History] meloxicam 15 mg tablet 15 mg PO QDAY 02/05/24 [History] semaglutide 2 mg/dose (8 mg/3 mL) subcutaneous pen injector (Ozempic) 2 mg subcut WEEKLY 02/05/24 [History] New Prescriptions hydrocodone 5 mg-acetaminophen 325 mg tablet 1 tab PO Q4H PRN #20 tabs 02/08/24 [Rx] Discharge Plan Discharge Plan Hospital Course: Pt is status post laparoscopic cholecystectomy and repair of umbilical hernia. He is doing well since procedure. Diet has been advanced. He was discharged in stable condition. Instructed light activities, low-fat diet, incentive spirometer. Follow-up in general surgery in 10 days and pcp in 1 week. Patient Disposition: 01 HOME, SELF-CARE Condition: Stable Health Concerns: Post Hospitalization: new medications and changes needed to prevent readmission or further decline. Pt educated and given instructions on all concerns. Care Plan Goals: Problem: Pain/Alteration in Comfort Goal: Improve/ Resolve Pain; Achieve Pain Tolerance Instructions: Take pain medications as prescribed. Contact your primary care provider if your pain is unrelieved or worsens. Follow up with primary care provider as directed. Plan of Treatment: Continue with present treatment and follow up plan. Pt is to keep follow up appointment as instructed and take medications as ordered. Prescriptions: New hydrocodone-acetaminophen 5-325 mg Tablet 1 tab PO Q4H MDD 6 PRNQty: 20 0RF Continued meloxicam 15 mg tablet 15 mg PO QDAY buspirone 10 mg tablet 10 mg PO DAILY lisinopril 10 mg tablet 10 mg PO QDAY escitalopram oxalate 20 mg tablet 20 mg PO QDAY Ozempic 2 mg/dose (8 mg/3 mL) pen injector 2 mg SUBCUT WEEKLY Patient Comments: [NO ORIGINAL SIG] Follow ups/Referrals Follow ups/Referrals: MISSY PRICE [STAFF PHYSICIAN] - 02/20/24 11:30 am Meño Avitia [Primary Care Provider] - (Follow up as needed.) Instructions Instructions: Laparoscopic Cholecystectomy, Care After, Eating Plan for Dumping Syndrome, Nausea and Vomiting, Adult, [id number], Fatty Liver Disease, Dumping Syndrome Activity Restrictions/Additional Instructions: Labwork - CBC, CMP to be done on Monday02/10/24 Stand Alone Forms: Excuse From Work or School, Post Hospital Follow Up Care
== END 2024-02-08 11:45 | disposition home or self-care (01) | DRG 419 ==
LOC: ICU 17:23 → ER 17:23 → ICU 23:52
PROVIDERS: ADMIT Family Medicine; ATTEND Family Medicine